=== PATIENT | female | born 1960 | race Caucasian/White ===

== ENCOUNTER 2024-01-16 08:51 | Outpatient (CLI) | payer BC ==
[~2024-01-16 08:51] MED LIST: 5-HY100C PO; ACET-1008 PO; ANAS1TAB PO; ASPI-12 PO; CLON1TAB12 PO; GABA-532 PO; IBUP-1984 PO; LEVO112T61 PO; MELA3TAB39 PO; MV-M1TAB19 PO; PER5325T PO
== END 2024-01-16 23:59 | disposition home or self-care (01) ==
LOC: VAS 08:51
PROVIDERS: ATTEND Orthopaedic Surgery
DX: I73.9 Peripheral vascular disease, unspecified (principal); R26.2 Difficulty in walking, not elsewhere classified; M25.561 Pain in right knee; Z96.651 Presence of right artificial knee joint
CPT/HCPCS: 93925